=== PATIENT | female | born 1980 | race Caucasian/White ===

== ENCOUNTER 2020-08-23 11:23 | Emergency (ER) | payer OTHER ==
[~2020-08-23] VITALS: Ht 160 cm; Wt 49.0 kg
[2020-08-23 12:13] VITALS: BP 147/78
--- NOTE | 2020-08-23 12:30 | ED.ADGEN ---
Past Medical History Past Medical History: Anxiety Additional Past Medical Histor: PTSD Past Surgical History: Tubal ligation Additional Past Surgical Histo: HERNIA, D&C, DENTAL Smoking Status: Current Every Day Smoker Alcohol Use: None General Adult EDM: Chief Complaint: DEPRESSION HPI: HPI: Patient is a 40 year old female, accompanied by her daughter, who presents to the emergency department with concerns of being in withdrawal after stopping taking clonazepam. Patient reports that she had been taking clonazepam 3 times a day for approximately 2 months and decided to stop taking it on August 152019. Since then she has had problems sleeping, difficulty focusing, and reports that she has been impulsively shopping. Patient states for the first few days she had nausea and vomiting but she has not vomited in the last 3 has been able to keep food down without any problem. Patient denies any previous suicide attempt, suicidal ideations, or homicidal ideations. She denies any visual or auditory hallucinations. Patient denies any COVID exposure, fever, cough, headache, abdominal pain, or diarrhea. PT states that she has had an altered sense of smell lately, everything smells like it is infected. She denies loss of taste/smell. She denies any pain at this time. Review of Systems: Review of Systems: Complete ROS is negative unless otherwise noted in HPI. Current Medications: Current Medications Medications (Trade) Dose Ordered Sig/Park Start Time Stop Time Status Last Admin Dose Admin Clonazepam (KlonoPIN) 0.5 mg 1X PRN 08/23/20 13:45 08/23/20 14:02 DC 08/23/20 14:01 0.5 MG Allergies: Allergies: Allergies Coded Allergies Type Severity Reaction Last Updated Verified No Known Drug Allergies 08/23/20 No Physical Exam: PE: See Above Constitutional: Well developed, well nourished, no acute distress, non-toxic appearance. [] HENT: Normocephalic, atraumatic, bilateral external ears normal, oropharynx moist, no oral exudates, nose normal. [] Eyes: PERRLA, EOMI, conjunctiva normal, no discharge. [] Neck: Normal range of motion, no tenderness, supple, no stridor. [] Cardiovascular:Heart rate regular rhythm, no murmur [] Lungs & Thorax: Bilateral breath sounds clear to auscultation [] Abdomen: Bowel sounds normal, soft, no tenderness, no masses, no pulsatile masses. [] Skin: Warm, dry, no erythema, no rash. [] Back: No tenderness, no CVA tenderness. [] Extremities: No tenderness, no cyanosis, no clubbing, ROM intact, no edema. [] Neurologic: Alert and oriented X 3, normal motor function, normal sensory function, no focal deficits noted. [] Psychologic: Affect normal, judgement normal, mood normal. [] Current Patient Data: Labs: Laboratory Tests Test 08/23/20 12:00 Urine Collection Type Unknown Urine Color Yellow Urine Clarity Clear Urine pH 7.0 (<5.0-8.0) Urine Specific [place] <=1.005 (1.000-1.030) Urine Protein Negative mg/dL (NEG-TRACE) Urine Glucose (UA) Negative mg/dL (NEG) Urine Ketones (Stick) Negative mg/dL (NEG) Urine Blood Negative (NEG) Urine Nitrite Negative (NEG) Urine Bilirubin Negative (NEG) Urine Urobilinogen Dipstick 0.2 mg/dL (0.2 mg/dL) Urine Leukocyte Esterase Negative (NEG) Urine RBC 0 /HPF (0-2) Urine WBC 0 /HPF (0-4) Urine Squamous Epithelial Cells Few /LPF Urine Bacteria Few /HPF (0-FEW) Urine Opiates Screen Neg (NEG) Urine Methadone Screen Neg (NEG) Urine Barbiturates Neg (NEG) Urine Phencyclidine Screen Neg (NEG) Urine Amphetamine/Methamphetamine Neg (NEG) Urine Benzodiazepines Screen Neg (NEG) Urine Cocaine Screen Neg (NEG) Urine Cannabinoids Screen Pos (NEG) Urine Ethyl Alcohol Neg (NEG) Vital Signs: Vital Signs Date Time Temp Pulse Resp B/P (MAP) Pulse Ox O2 Delivery O2 Flow Rate FiO2 08/23/20 12:13 98.4 97 20 147/78 (101) 99 Room Air 98.4 EKG: EKG: [] Heart Score: Risk Factors: Risk Factors: DM, Current or recent (<one month) smoker, HTN, HLP, family history of CAD, obesity. Risk Scores: Score 0 - 3: 2.5% MACE over next 6 weeks - Discharge Home Score 4 - 6: 20.3% MACE over next 6 weeks - Admit for Clinical Observation Score 7 - 10: 72.7% MACE over next 6 weeks - Early Invasive Strategies Radiology/Procedures: Radiology/Procedures: [] Course & Med Decision Making: Course & Med Decision Making Pertinent Labs and Imaging studies reviewed. (See chart for details) 1228-I spoke with Miguel with the PAT assessment team he will come out and evaluate the patient and provide her with mental health resources. 1340-I spoke with Miguel following his evaluation of the patient. Patient was informed that I will not prescribe any new medications for treatment of her anxiety and manic symptoms, I offered to prescribe the patient a 1 week refill of her previously prescribed 0.5 mg clonazepam. Patient was agreeable to this plan. She was provided with resources by Miguel for psychiatric follow-up. Patient was given 0.5 mg of clonazepam prior to discharge. I advised the patient that her symptoms are not likely to be due to withdrawal from the medication as the half-life of this medication is 30 to 40 hours and she has not taken it for over 8 days. Patient's vital signs are stable. [] Jef Disclaimer: Jef Disclaimer: This electronic medical record was generated, in whole or in part, using a voice recognition dictation system. Departure Departure Impression: Primary Impression: Anxiety Additional Impression: Manic behavior Disposition: 01 DC HOME SELF CARE/HOMELESS Condition: STABLE Referrals: NO PCP (PCP) Patient Instructions: Anxiety and Panic Attacks, [id number] Additional Instructions: Fill the prescription and take as directed. Follow up with your primary care or a behavioral health specialist using the resources provided to you by the mental health ecological risk assessor. Return to the ER if symptoms worsen. Scripts Clonazepam (CLONAZEPAM ) 0.5 Mg Tablet 0.5 MG PO TID for FOR ANXIETY for 7 Days, #21 TAB 0 Refills Prov: MADELINE CANAS APRN 08/23/20 Problem Qualifiers MADELINE CANAS BEHAVIORAL HEALTH CLINICIAN Aug 23, 2020 12:30
[2020-08-23 12:53] LABS: BILIRUBIN,URINE NEGATIVE (NEG); CLARITY,URINE CLEAR; COLOR,URINE YELLOW; NITRITE,URINE NEGATIVE (NEG); PROTEIN,URINE NEGATIVE (NEG-TRACE); UROBILINOGEN,URINE 0.2 mg/dL (0.2 mg/dL)
[2020-08-23 12:59] LABS: BARBITURATES NEG (NEG); BENZODIAZEPINES NEG (NEG); CANNABINOIDS POS (NEG); COCAINE NEG (NEG); METHADONE NEG (NEG); OPIATES NEG (NEG); PHENCYCLIDINE NEG (NEG)
[2020-08-23 13:02] LABS: AMPHETAMINE/METHAMPHETAMINE NEG (NEG)
[2020-08-23 13:19] LABS: BACTERIA,URINE FEW /HPF (0-FEW); RBC,URINE 0 /HPF (0-2); WBC,URINE 0 /HPF (0-4)
[2020-08-23] MEDS ORDERED: CLON-77 PO (13:55)
[2020-08-23] MEDS: clonazePAM 0.5 MG TABLET PO PRN (14:01)
== END 2020-08-23 14:02 | disposition home or self-care (01) ==
LOC: ER 11:23
DX: F30.9 Manic episode, unspecified (principal); F41.9 Anxiety disorder, unspecified; R11.2 Nausea with vomiting, unspecified; F43.10 Post-traumatic stress disorder, unspecified; F17.200 Nicotine dependence, unspecified, uncomplicated; Z98.51 Tubal ligation status
CPT/HCPCS: 80307; 81001; 99283